=== PATIENT | female | born 1940 | race Caucasian/White ===

== ENCOUNTER 2022-05-06 10:41 | Observation (INO) ==
[2022-05-06 12:01] LABS: Bilirubin,Urine Negative (Negative); Blood,Urine Negative (Negative); Clarity,Urine Clear (Clear); Color,Urine Light-Yellow (Yellow); Glucose,Urine (UA) Normal (Normal); Ketones,Urine Negative (Negative); Leukocyte Esterase,Urine Trace (Negative); Mucus,Urine Few per lpf (None-Few); Nitrite,Urine Negative (Negative); PH,Urine 6.5 pH Units (5.0-8.0); Protein,Urine Negative (Neg-Trace); RBC,Urine 0-3 per hpf (0-3); Specific Gravity,Urine 1.009 (1.010-1.025); Urobilinogen,Urine Normal (Normal)
[2022-05-06 12:10] LABS: Basophils # 0.1 K/mcL (0.0-0.2); Basophils % 0.7 %; Eosinophils # 0.2 K/mcL (0.0-0.6); Eosinophils % 2.1 %; Hematocrit 33.2 % (35.3-44.9); Hemoglobin 10.3 g/dL (11.5-15.4); Immature Granulocytes % 0.5 % (0-4); Lymphocytes # 1.5 K/mcL (0.6-4.6); Lymphocytes % 13.6 %; Mean Corpuscular Hemoglobin 27.8 pg (28.0-33.3); Mean Corpuscular Volume 89.5 fL (83.0-100.0); Mean Platelet Volume 8.3 fL (9.4-12.4); Monocytes # 0.8 K/mcL (0.0-1.3); Monocytes % 7.1 %; Neutrophils # 8.4 K/mcL (1.6-8.9); Platelet Count 393 K/mcL (140-400); Red Blood Count 3.71 M/mcL (3.82-4.97); Red Cell Distribution Width 15.3 % (11.5-14.5)
[2022-05-06 12:13] LABS: BUN/Creatinine Ratio 22 (6-26); Blood Urea Nitrogen 15 mg/dL (8-23); Calcium 9.3 mg/dL (8.6-10.3); Carbon Dioxide 28 mEq/L (23-29); Chloride 101 mEq/L (98-107); Glucose 89 mg/dL (70-105); Magnesium 1.9 mg/dL (1.6-2.6); Osmolality,Calculated 286 (280-300); Potassium 3.8 mEq/L (3.5-5.1); Sodium 138 mEq/L (136-145); Troponin I < 0.03 ng/mL (< 0.04)
[2022-05-06] MEDS ORDERED: Aspirin 81 MG TAB.CHEW PO ONE (13:55)
[2022-05-06] MEDS ORDERED: Naloxone 0.4 MG/ML INJ IVP PRN (13:56)
[2022-05-06] MEDS ORDERED: Ondansetron 4 MG/2 ML VIAL IVP PRN (13:56)
[2022-05-06] MEDS ORDERED: Loratadine 10 MG TABLET PO PRN (14:23)
[2022-05-07 04:05] LABS: Hematocrit 32.5 % (35.3-44.9); Hemoglobin 10.2 g/dL (11.5-15.4); Immature Granulocytes % 0.6 % (0-4); Lymphocytes % 14.4 %; Mean Corpuscular HGB Conc 31.4 g/dL (31.6-35.5); Mean Corpuscular Hemoglobin 27.6 pg (28.0-33.3); Mean Corpuscular Volume 87.8 fL (83.0-100.0); Mean Platelet Volume 8.2 fL (9.4-12.4); Monocytes % 6.5 %; Platelet Count 401 K/mcL (140-400); Red Cell Distribution Width 15.3 % (11.5-14.5); Segmented Neutrophils % 72.4 %; White Blood Count 12.4 K/mcL (4.3-11.1)
[2022-05-07 04:06] LABS: Basophils # 0.1 K/mcL (0.0-0.2); Basophils % 0.9 %; Eosinophils # 0.7 K/mcL (0.0-0.6); Eosinophils % 5.2 %; Lymphocytes # 1.8 K/mcL (0.6-4.6); Monocytes # 0.8 K/mcL (0.0-1.3)
[2022-05-07 04:30] LABS: Calcium 8.4 mg/dL (8.6-10.3); Chol/HDL Ratio 2.7 (0-4.9); Magnesium 1.8 mg/dL (1.6-2.6); Potassium 3.5 mEq/L (3.5-5.1)
[2022-05-07] MEDS ORDERED: Regadenoson 0.4 MG/5 ML SYRINGE IVP ONE (05:57)
[2022-05-07 07:03] VITALS: O2SAT 98
[2022-05-07] MEDS ORDERED: Ascorbic Acid 500 MG TABLET PO SCH (09:00)
[2022-05-07 10:27] VITALS: BP 125/66; PULSE 84; TEMP 97.4
[2022-05-07] MEDS: Aspirin 81 MG TAB.CHEW PO SCH ×2 (11:19→11:54)
== END 2022-05-07 13:25 | disposition home or self-care (01) ==
LOC: EMEROOARM 10:41 → 3BNU 10:41 → SUATTDRO 14:06 → 3BNU 15:31
PROVIDERS: ADMIT Internal Medicine; ATTEND Family Medicine